=== PATIENT | female | born 1990 | race Caucasian/White ===

== ENCOUNTER 2020-09-05 22:54 | Emergency (ER) | payer OTHER ==
[2020-09-06] MEDS ORDERED: MEDROL 4MG DOSEP4 MG PO (02:17)
[2020-09-06] MEDS ORDERED: NORCO 5-325 TA1 EACH PO (02:17)
[2020-09-06] MEDS ORDERED: AZITHROMYCIN250 MG PO (02:17)
[2020-09-06] MEDS ORDERED: IBUPROFEN800 MG PO (02:17)
[2020-09-06] MEDS ORDERED: VENTOLIN HFA IN18 GM INH (02:17)
[2020-09-06 02:32] LABS: BILIRUBIN NEGATIVE (NEGATIVE); BLOOD NEGATIVE Ery/uL (NEGATIVE); CLARITY CLEAR (CLEAR); COLOR YELLOW (YELLOW); GLUCOSE (U) NORMAL (NORMAL); LEUKOCYTES NEGATIVE Leu/uL (NEGATIVE); NITRITE NEGATIVE (NEGATIVE); PROTEIN NEGATIVE (NEGATIVE); SPECIFIC GRAVITY >=1.030 (1.001-1.030); UROBILINOGEN 0.2 mg/dL (0.2-1.0); pH 5.5 (5.0-9.0)
== END 2020-09-06 02:37 | disposition home or self-care (01) ==
LOC: FER 22:54
PROVIDERS: Emergency Medicine Emergency Medical Services
DX: U07.1 COVID-19 (principal); J45.901 Unspecified asthma with (acute) exacerbation; F17.200 Nicotine dependence, unspecified, uncomplicated; F41.9 Anxiety disorder, unspecified; F31.9 Bipolar disorder, unspecified; Z87.09 Personal history of other diseases of the respiratory system; Z79.899 Other long term (current) drug therapy
CPT/HCPCS: 71045; 81003; 94640; 94664; J1885; J7512; U0002